=== PATIENT | female | born 1960 | race Caucasian/White ===

== ENCOUNTER 2018-10-19 00:14 | Inpatient (IN) | payer MEDICARE, MEDICAID ==
[~2018-10-19] VITALS: Ht 165.1 cm; Wt 100.0 kg
[2018-10-19 01:26] LABS: CLARITY,URINE CLEAR (Clear); GLUCOSE, URINE NEGATIVE (Neg); LEUKOCYTE ESTERASE ,URINE NEGATIVE (Neg); OCCULT BLOOD,URINE NEGATIVE (Neg)
[2018-10-19 01:28] LABS: UA COLLECTION TYPE CLN CATCH MIDSTREAM
[2018-10-19 01:29] LABS: BASOPHILS % (AUTO) 0.7 % (0-1); EOSINOPHILS # (AUTO) 0.1 X10'3 (0-0.9); EOSINOPHILS % (AUTO) 1.7 % (0-6); HEMOGLOBIN 13.1 g/dl (12.0-16.0); LYMPHOCYTES # (AUTO) 1.2 X10'3 (1.1-4.8); LYMPHOCYTES % (AUTO) 20.2 % (21-51); MEAN CORPUSCULAR HEMOGLOBIN 34.7 PG (27.0-31.0); MEAN CORPUSCULAR HGB CONC 34.5 g/dL (33.0-36.5); MEAN CORPUSCULAR VOLUME 100.6 FL (78-98); MEAN PLATELET VOLUME 10.1 FL (7.4-10.4); MONOCYTES # (AUTO) 0.9 X10'3 (0-0.9); MONOCYTES % (AUTO) 15.7 % (2-12); NEUTROPHILS # (AUTO) 3.5 X10'3 (1.8-7.7); NEUTROPHILS % (AUTO) 61.7 % (42-75); PLATELET COUNT 58 X10'3 (140-440); RED BLOOD COUNT 3.78 X10'6 (4.20-5.60); RED CELL DISTRIBUTION WIDTH 13.8 % (11.5-14.5); WHITE BLOOD COUNT 5.8 X10'3 (4.5-11.0)
[2018-10-19 01:33] LABS: COLOR,URINE ORANGE (Yellow)
[2018-10-19] MEDS ORDERED: iohexol 300mg/ml 100ml inj. ONE (01:40)
[2018-10-19 01:44] LABS: ALANINE AMINOTRANSFERASE 71 U/L (12-78); ALBUMIN 3.2 G/DL (3.4-5.0); ALKALINE PHOSPHATASE 153 IU/L (46-116); ANION GAP 12 (8-16); ASPARTATE AMINO TRANSFERASE 214 U/L (10-37); BILIRUBIN,TOTAL 7.5 MG/DL (0.1-1.0); BLOOD UREA NITROGEN 2 MG/DL (7-18); BUN/CREATININE RATIO 3.4 (6.6-38.0); CALCIUM 9.2 MG/DL (8.5-10.1); CHLORIDE 99 MMOL/L (99-107); CREATININE 0.58 MG/DL (0.40-0.90); ETHANOL 0.144 GM/DL (0.0-0.010); GLUCOSE 68 MG/DL (70-104); LIPASE 256 U/L (73-393); PARTIAL THROMBOPLASTIN TIME 34 SECONDS (22-32); SODIUM 138 MMOL/L (135-145); TOTAL CARBON DIOXIDE 27.1 MMOL/L (24-32); eGFR > 90 ML/MIN
[2018-10-19 01:46] LABS: BACTERIA,URINE FEW /HPF (Neg); RBC,URINE NONE SEEN /HPF (0-2)
[2018-10-19 01:46] LABS: ALBUMIN/GLOBULIN RATIO 0.8 (1.1-1.5); TOTAL PROTEIN 7.3 G/DL (6.4-8.2)
[2018-10-19 01:47] LABS: MUCUS STRANDS FEW /LPF (Neg); SQUAMOUS EPITHELIAL CELL,UR FEW /LPF (FEW)
[2018-10-19 01:48] LABS: FINE GRANULAR CAST 0-3 /LPF (NEGATIVE); YEAST FEW /HPF (NEGATIVE)
[2018-10-19] MEDS ORDERED: UMEC1DIS INH (01:48)
[2018-10-19] MEDS ORDERED: MORP30TA6 PO (01:48)
[2018-10-19] MEDS ORDERED: OXYC30TA88 PO (01:48)
[2018-10-19] MEDS ORDERED: [UNRECOGNIZED DRUG - CODE] PO (01:48)
[2018-10-19] MEDS ORDERED: ALBU18HF2 INH (01:48)
[2018-10-19] MEDS ORDERED: magnesium 4gm in 100ml NS 100 ML IV ONE (01:50)
[2018-10-19 01:57] LABS: NUCLEATED RED BLOOD CELLS 1 /100WBC (0-0); TOTAL CELLS COUNTED 100
[2018-10-19 01:59] LABS: PLATELET ESTIMATE DECREASED
[2018-10-19] MEDS ORDERED: CefTRIAXone/D5W-Rocephin 1gm 50 ML IV ONE (03:00)
[2018-10-19] MEDS ORDERED: lactulose 20gm/30ml cup PO ONE (03:25)
[2018-10-19] MEDS ORDERED: magnesium 4gm in 100ml NS 100 ML IV PRN (03:30)
[2018-10-19] MEDS ORDERED: mag hydrox/Alum hydrox/simeth 30ml oral suspension PO PRN (03:30)
[2018-10-19] MEDS ORDERED: potassium Cl 20 mEq SR tablet PO PRN ×2 (03:30)
[2018-10-19] MEDS ORDERED: acetaminophen 325mg tablet PO PRN (03:30)
[2018-10-19] MEDS ORDERED: ondansetron/PF 4mg/2ml inj IV PRN (03:30)
[2018-10-19] MEDS ORDERED: magnesium Cl slow-release 64mg tablet PO PRN (03:30)
[2018-10-19] MEDS ORDERED: magnesium 2GM in 50ml NS 50 ML IV PRN (03:30)
[2018-10-19] MEDS ORDERED: potassium CL 10mEq/100ml bag 100 ML IV PRN ×2 (03:30)
[2018-10-19] MEDS ORDERED: magnesium hydroxide 30ml (MOM) UD suspension PO PRN (03:30)
[2018-10-19 04:45] VITALS: BP 126/73
--- NOTE | 2018-10-19 06:34 | NUR ---
Problems reprioritized. Patient report given, questions answered & plan of care reviewed with RONIT Pena. Addendum: 10/19/18 at 0635 by Anne He RN Amended: Links added.
--- NOTE | 2018-10-19 06:35 | NUR ---
Patient in room [facility]. I have received report from RONIT Palmer and had the opportunity to ask questions and assume patient care.
[2018-10-19] MEDS: thiamine inj. 100 MG, folic acid inj. 2 MG in normal saline 100ml IV soln 100 ML IV SCH (07:42)
[2018-10-19] MEDS: morphine ER 30mg tablet PO SCH ×3 (07:42→20:05)
[2018-10-19] MEDS: lactulose 20gm/30ml cup PO SCH ×3 (07:43→20:07)
[2018-10-19] MEDS: MVI, adult No.4 with vit. K 10 ML in dextrose 5% water 500ml 500 ML IV SCH ×2 (07:50)
[2018-10-19 08:00] VITALS: BP 130/83
[2018-10-19] MEDS: PIMOZIDE PO SCH ×2 (08:00→20:00)
[2018-10-19] MEDS ORDERED: potassium bicarbonate/cit acid 25mEq tablet.effervescent PO ONE (08:00)
[2018-10-19] MEDS: K and/or MAG REPLACEMENT MC SCH (08:00)
[2018-10-19 08:27] LABS: MAGNESIUM 1.8 MG/DL (1.5-2.4)
[2018-10-19 08:29] LABS: POTASSIUM 3.5 MMOL/L (3.5-5.1)
[2018-10-19 12:00] VITALS: BP 146/72
[2018-10-19] MEDS: oxyCODONE IR 5mg (immed. release) tablet PO PRN ×2 (13:50→17:58)
[2018-10-19] MEDS: LORazepam 0.5 MG tablet PO PRN ×2 (17:58→23:31)
[2018-10-19] MEDS: CefTRIAXone/D5W-Rocephin 1gm 50 ML IV SCH (17:58)
--- NOTE | 2018-10-19 18:28 | NUR ---
Problems reprioritized. Patient report given, questions answered & plan of care reviewed with RONIT Yaets.
--- NOTE | 2018-10-19 18:38 | NUR ---
Patient in room [facility]. I have received report from Becky COTTRELL and had the opportunity to ask questions and assume patient care.
[2018-10-19 19:00] VITALS: BP 123/77
--- NOTE | 2018-10-19 20:00 | NUR ---
Patient refused shower and states she will take one in the morning. Addendum: 10/20/18 at 0543 by Trudy Sanchez RN Amended: Links added.
[2018-10-20] VITALS: BP 123/68
[2018-10-20] MEDS: oxyCODONE IR 5mg (immed. release) tablet PO PRN ×3 (01:04→23:00)
[2018-10-20 05:51] LABS: EOSINOPHILS # (AUTO) 0.2 X10'3 (0-0.9); EOSINOPHILS % (AUTO) 3.3 % (0-6); HEMATOCRIT 37.9 % (35.0-45.0); HEMOGLOBIN 13.1 g/dl (12.0-16.0); LYMPHOCYTES # (AUTO) 0.7 X10'3 (1.1-4.8); LYMPHOCYTES % (AUTO) 14.4 % (21-51); MEAN CORPUSCULAR HGB CONC 34.5 g/dL (33.0-36.5); MEAN CORPUSCULAR VOLUME 101.7 FL (78-98); MEAN PLATELET VOLUME 11.3 FL (7.4-10.4); MONOCYTES # (AUTO) 0.6 X10'3 (0-0.9); MONOCYTES % (AUTO) 12.5 % (2-12); NEUTROPHILS # (AUTO) 3.4 X10'3 (1.8-7.7); NEUTROPHILS % (AUTO) 68.8 % (42-75); PLATELET COUNT 54 X10'3 (140-440); RED BLOOD COUNT 3.72 X10'6 (4.20-5.60); RED CELL DISTRIBUTION WIDTH 13.8 % (11.5-14.5)
[2018-10-20 05:54] LABS: ALANINE AMINOTRANSFERASE 72 U/L (12-78); ALBUMIN 3.1 G/DL (3.4-5.0); ALKALINE PHOSPHATASE 159 IU/L (46-116); ANION GAP 8 (8-16); ASPARTATE AMINO TRANSFERASE 230 U/L (10-37); BILIRUBIN,TOTAL 10.7 MG/DL (0.1-1.0); BLOOD UREA NITROGEN 6 MG/DL (7-18); BUN/CREATININE RATIO 12.8 (6.6-38.0); CALCIUM 8.5 MG/DL (8.5-10.1); CHLORIDE 96 MMOL/L (99-107); CREATININE 0.47 MG/DL (0.40-0.90); GLUCOSE 93 MG/DL (70-104); MAGNESIUM 1.6 MG/DL (1.5-2.4); SODIUM 132 MMOL/L (135-145); TOTAL CARBON DIOXIDE 28.5 MMOL/L (24-32); eGFR > 90 ML/MIN
[2018-10-20 06:03] LABS: ALBUMIN/GLOBULIN RATIO 0.7 (1.1-1.5); PHOSPHORUS 2.9 MG/DL (2.3-4.5); POTASSIUM 3.7 MMOL/L (3.5-5.1); TOTAL PROTEIN 7.5 G/DL (6.4-8.2)
--- NOTE | 2018-10-20 06:30 | NUR ---
Problems reprioritized. Patient report given, questions answered & plan of care reviewed with Shital COTTRELL.
[2018-10-20 06:39] LABS: NUCLEATED RED BLOOD CELLS 1 /100WBC (0-0); PLATELET ESTIMATE DECREASED; TOTAL CELLS COUNTED 100
[2018-10-20 06:40] LABS: HYPOCHROMASIA 1+; POLYCHROMASIA 1+; STOMATOCYTES 1+
[2018-10-20 07:00] VITALS: BP 135/95
[2018-10-20] MEDS: PIMOZIDE PO SCH ×2 (07:30→20:00)
[2018-10-20] MEDS: K and/or MAG REPLACEMENT MC SCH (07:30)
[2018-10-20] MEDS: lactulose 20gm/30ml cup PO SCH ×4 (07:34→20:59)
[2018-10-20] MEDS: morphine ER 30mg tablet PO SCH ×3 (07:34→20:56)
[2018-10-20] MEDS: CefTRIAXone/D5W-Rocephin 1gm 50 ML IV SCH (07:34)
[2018-10-20] MEDS: MVI, adult No.4 with vit. K 10 ML in dextrose 5% water 500ml 500 ML IV SCH ×2 (09:11)
[2018-10-20] MEDS: thiamine inj. 100 MG, folic acid inj. 2 MG in normal saline 100ml IV soln 100 ML IV SCH (09:11)
[2018-10-20] MEDS ORDERED: pneumococcal 23-VAL P-sac vacc 25 mcg/0.5ml vial IMVAC ONE (10:00)
[2018-10-20] MEDS ORDERED: sincalide inj 2 MCG in normal saline 50ml IV soln 50 ML IV ONE (10:55)
[2018-10-20 13:38] VITALS: BP 127/87
--- NOTE | 2018-10-20 18:20 | NUR ---
Problems reprioritized. Patient report given, questions answered & plan of care reviewed with PRUDENCE RN.
--- NOTE | 2018-10-20 18:53 | NUR ---
Patient in room [facility]. I have received report from Shital COTTRELL and had the opportunity to ask questions and assume patient care.Patient is with visitor by her bedside and show no sign of distress.
[2018-10-20 19:00] VITALS: BP 110/81
[2018-10-20] MEDS: LORazepam 0.5 MG tablet PO PRN (20:56)
[2018-10-20] MEDS: lactobacillus rhamnosus 10,000 MMU CELLS/CAPSULE PO SCH (20:56)
[2018-10-20] MEDS ORDERED: nicotine 21mg patch - 24 hr TD ONE (22:45)
[2018-10-21] VITALS: BP 139/87
[2018-10-21] MEDS: LORazepam 0.5 MG tablet PO PRN ×2 (04:14→08:34)
[2018-10-21 06:07] LABS: BASOPHILS % (AUTO) 0.9 % (0-1); EOSINOPHILS # (AUTO) 0.1 X10'3 (0-0.9); EOSINOPHILS % (AUTO) 2.2 % (0-6); HEMATOCRIT 37.7 % (35.0-45.0); LYMPHOCYTES # (AUTO) 0.7 X10'3 (1.1-4.8); LYMPHOCYTES % (AUTO) 13.1 % (21-51); MEAN CORPUSCULAR HEMOGLOBIN 35.4 PG (27.0-31.0); MEAN CORPUSCULAR HGB CONC 34.4 g/dL (33.0-36.5); MEAN CORPUSCULAR VOLUME 102.9 FL (78-98); MEAN PLATELET VOLUME 11.2 FL (7.4-10.4); MONOCYTES # (AUTO) 0.7 X10'3 (0-0.9); MONOCYTES % (AUTO) 12.7 % (2-12); NEUTROPHILS # (AUTO) 3.7 X10'3 (1.8-7.7); NEUTROPHILS % (AUTO) 71.1 % (42-75); PLATELET COUNT 57 X10'3 (140-440); RED BLOOD COUNT 3.67 X10'6 (4.20-5.60); WHITE BLOOD COUNT 5.2 X10'3 (4.5-11.0)
--- NOTE | 2018-10-21 06:26 | NUR ---
Patient in room [facility]. I have received report from RONIT Yates and had the opportunity to ask questions and assume patient care.
[2018-10-21 06:27] LABS: ALANINE AMINOTRANSFERASE 65 U/L (12-78); ALBUMIN 2.8 G/DL (3.4-5.0); ALKALINE PHOSPHATASE 145 IU/L (46-116); ANION GAP 9 (8-16); ASPARTATE AMINO TRANSFERASE 205 U/L (10-37); BILIRUBIN,TOTAL 13.4 MG/DL (0.1-1.0); BLOOD UREA NITROGEN 6 MG/DL (7-18); BUN/CREATININE RATIO 14.6 (6.6-38.0); CALCIUM 8.6 MG/DL (8.5-10.1); CHLORIDE 100 MMOL/L (99-107); CREATININE 0.41 MG/DL (0.40-0.90); GLUCOSE 96 MG/DL (70-104); MAGNESIUM 1.9 MG/DL (1.5-2.4); SODIUM 136 MMOL/L (135-145); TOTAL CARBON DIOXIDE 26.7 MMOL/L (24-32); eGFR > 90 ML/MIN
--- NOTE | 2018-10-21 06:27 | NUR ---
Problems reprioritized. Patient report given, questions answered & plan of care reviewed with Romi COTTRELL.
[2018-10-21 06:38] LABS: PHOSPHORUS 3.3 MG/DL (2.3-4.5); POTASSIUM 3.3 MMOL/L (3.5-5.1)
[2018-10-21 06:41] LABS: ALBUMIN/GLOBULIN RATIO 0.7 (1.1-1.5); TOTAL PROTEIN 6.8 G/DL (6.4-8.2)
[2018-10-21 07:00] VITALS: BP 126/87
[2018-10-21] MEDS ORDERED: folic acid 1mg tablet PO SCH (08:00)
[2018-10-21] MEDS ORDERED: multivitamins, therapeutics tablet PO SCH (08:00)
[2018-10-21] MEDS: PIMOZIDE PO SCH (08:00)
[2018-10-21] MEDS ORDERED: thiamine 100mg tablet PO SCH (08:00)
[2018-10-21] MEDS: K and/or MAG REPLACEMENT MC SCH (08:00)
[2018-10-21] MEDS: lactulose 20gm/30ml cup PO SCH (08:00)
[2018-10-21] MEDS: lactobacillus rhamnosus 10,000 MMU CELLS/CAPSULE PO SCH (08:31)
[2018-10-21] MEDS: morphine ER 30mg tablet PO SCH (08:31)
[2018-10-21] MEDS ORDERED: MULT-1179 PO (09:10)
[2018-10-21] MEDS ORDERED: MORP30TA6 PO (09:10)
[2018-10-21] MEDS ORDERED: PANT40TA4 PO (09:10)
[2018-10-21] MEDS ORDERED: FOLI1TAB16 PO (09:10)
[2018-10-21] MEDS ORDERED: LACT10SO32 PO (09:10)
[2018-10-21] MEDS ORDERED: thiamine tablet PO (09:10)
[2018-10-21] MEDS ORDERED: OXYC30TA88 PO (09:10)
--- NOTE | 2018-10-21 10:30 | NUR ---
Patient discharged home via family and taken from unit via wheelchair with x1 staff. Patient alert, oriented and in no apparent distress at time of discharge. Patient PIV removed with cannula intact. Potassium was 3.3 today and a 20 mEq tablet was given to patient, MD aware of low potassium. Discharge instructions were given and discussed with patient. Patient was given time for question and answers and stated an understanding of the instructions. New medications called into patient pharmacy.
== END 2018-10-21 10:30 | disposition home or self-care (01) | DRG 432 ==
LOC: ER 00:15 → SUR 3N 04:24 → CMPBEDREQ 05:02 → SUR 3N 21:50
PROVIDERS: ADMIT Hospitalist; ATTEND Internal Medicine
PROC: BW211ZZ Computerized Tomography (CT Scan) of Abdomen and Pelvis using Low Osmolar Contrast (ICD-10-PCS; 2018-10-19)
PROC: CF141ZZ Planar Nuclear Medicine Imaging of Gallbladder using Technetium 99m (Tc-99m) (ICD-10-PCS; principal; 2018-10-20)
DX: K70.10 Alcoholic hepatitis without ascites (principal); K72.00 Acute and subacute hepatic failure without coma; E87.1 Hypo-osmolality and hyponatremia; N30.00 Acute cystitis without hematuria; D68.9 Coagulation defect, unspecified; K70.30 Alcoholic cirrhosis of liver without ascites; F10.229 Alcohol dependence with intoxication, unspecified; E87.6 Hypokalemia; E83.42 Hypomagnesemia; D69.6 Thrombocytopenia, unspecified; G89.4 Chronic pain syndrome; J44.9 Chronic obstructive pulmonary disease, unspecified; K43.9 Ventral hernia without obstruction or gangrene; K76.0 Fatty (change of) liver, not elsewhere classified; B19.20 Unspecified viral hepatitis C without hepatic coma; Z98.891 History of uterine scar from previous surgery; Z79.899 Other long term (current) drug therapy
CPT/HCPCS: 36415; 71045; 74177; 78226; 80053; 80320; 81001; 82140; 82948; 83690; 83735; 84100; 84132; 85025; 85610; 85730; 86803; 87081; 87088; 90732; 93005; 97116; 97161; 97530; 99285; A9537; G0378; J0696; J2805; J3411; J3475; J3490; J7060; Q9967

== ENCOUNTER 2018-11-25 19:20 | Inpatient (IN) | payer MEDICARE, MEDICAID ==
[~2018-11-25] VITALS: Ht 165.1 cm; Wt 102.3 kg
[~2018-11-25 19:20] MED LIST: FOLI1TAB16 PO; LACT10SO32 PO; MORP30TA6 PO; MULT-1179 PO; OXYC30TA88 PO; PANT40TA4 PO; [UNRECOGNIZED DRUG - CODE] PO; thiamine tablet PO
[2018-11-25 20:34] LABS: BASOPHILS # (AUTO) 0.1 X10'3 (0-0.2); BASOPHILS % (AUTO) 0.9 % (0-1); EOSINOPHILS # (AUTO) 0.1 X10'3 (0-0.9); EOSINOPHILS % (AUTO) 0.4 % (0-6); HEMATOCRIT 42.8 % (35.0-45.0); HEMOGLOBIN 14.7 g/dl (12.0-16.0); LYMPHOCYTES # (AUTO) 2.8 X10'3 (1.1-4.8); LYMPHOCYTES % (AUTO) 18.9 % (21-51); MEAN CORPUSCULAR HEMOGLOBIN 34.9 PG (27.0-31.0); MEAN CORPUSCULAR HGB CONC 34.3 g/dL (33.0-36.5); MEAN CORPUSCULAR VOLUME 101.8 FL (78-98); MEAN PLATELET VOLUME 9.2 FL (7.4-10.4); MONOCYTES # (AUTO) 1.7 X10'3 (0-0.9); MONOCYTES % (AUTO) 11.6 % (2-12); NEUTROPHILS # (AUTO) 9.9 X10'3 (1.8-7.7); NEUTROPHILS % (AUTO) 68.2 % (42-75); PLATELET COUNT 146 X10'3 (140-440); RED CELL DISTRIBUTION WIDTH 14.9 % (11.5-14.5); WHITE BLOOD COUNT 14.6 X10'3 (4.5-11.0)
[2018-11-25 21:22] LABS: ALANINE AMINOTRANSFERASE 49 U/L (12-78); ALBUMIN 2.4 G/DL (3.4-5.0); ALKALINE PHOSPHATASE 174 IU/L (46-116); BILIRUBIN,TOTAL 7.7 MG/DL (0.1-1.0); BLOOD UREA NITROGEN 9 MG/DL (7-18); BUN/CREATININE RATIO 8.3 (6.6-38.0); CALCIUM 9.4 MG/DL (8.5-10.1); CREATININE 1.09 MG/DL (0.40-0.90); GLUCOSE 88 MG/DL (70-104); TOTAL CARBON DIOXIDE 23.7 MMOL/L (24-32); eGFR 52 ML/MIN
[2018-11-25] MEDS ORDERED: furosemide 10 MG/1 ML 10ml inj IV ONE (21:35)
[2018-11-25 21:40] LABS: ALBUMIN/GLOBULIN RATIO 0.4 (1.1-1.5); ANION GAP 18 (8-16); CHLORIDE 91 MMOL/L (99-107); SODIUM 133 MMOL/L (135-145); TOTAL PROTEIN 8.3 G/DL (6.4-8.2)
[2018-11-25 21:46] LABS: POTASSIUM 6.3 MMOL/L (3.5-5.1)
[2018-11-25 21:47] LABS: ASPARTATE AMINO TRANSFERASE 95 U/L (10-37)
[2018-11-25] MEDS ORDERED: dextrose 50%-water 50ml dispensing syringe IV ONE (21:50)
[2018-11-25] MEDS ORDERED: sodium polystyrene sulfonate 15gm/60ml oral suspension PO ONE (21:50)
[2018-11-25] MEDS ORDERED: calcium chloride 100 MG/1 ML inj IV ONE (21:50)
[2018-11-25] MEDS ORDERED: insulin regular, human 10 units/0.1 ml syringe IV ONE (21:50)
[2018-11-25] MEDS ORDERED: SULF1TAB49 PO (22:01)
[2018-11-25 22:03] LABS: CLARITY,URINE CLEAR (Clear); COLOR,URINE YELLOW (Yellow); GLUCOSE, URINE NEGATIVE (Neg); KETONES,URINE NEGATIVE (Neg); LEUKOCYTE ESTERASE ,URINE NEGATIVE (Neg); NITRITES, URINE NEGATIVE (Neg); OCCULT BLOOD,URINE NEGATIVE (Neg); PROTEIN,URINE NEGATIVE (Neg); UROBILINOGEN,URINE 0.2 E.U/dL (0.2-1.0)
[2018-11-25] MEDS ORDERED: MILK175T PO (22:03)
[2018-11-25 22:05] LABS: UA COLLECTION TYPE VOIDED
[2018-11-25] MEDS ORDERED: PROP10TA10 PO (22:06)
[2018-11-25] MEDS ORDERED: FURO-149 PO (22:07)
[2018-11-25] MEDS ORDERED: SPIR50TA5 PO (22:09)
[2018-11-25] MEDS ORDERED: POTA10TA15 PO (22:30)
[2018-11-25] MEDS ORDERED: LACT10SO57 PO (22:34)
[2018-11-25] MEDS ORDERED: UMEC1DIS INH (22:40)
[2018-11-25] MEDS ORDERED: ALBU18HF2 INH (22:42)
[2018-11-25] MEDS ORDERED: NALO4SPR INH (22:50)
[2018-11-25] MEDS ORDERED: DICL100G15 TOP (22:53)
[2018-11-25] MEDS ORDERED: ondansetron/PF 4mg/2ml inj IV PRN (23:05)
[2018-11-25] MEDS ORDERED: acetaminophen 325mg tablet PO PRN (23:05)
[2018-11-25] MEDS ORDERED: mag hydrox/Alum hydrox/simeth 30ml oral suspension PO PRN (23:05)
[2018-11-25] MEDS ORDERED: magnesium hydroxide 30ml (MOM) UD suspension PO PRN (23:05)
--- NOTE | 2018-11-26 00:30 | NUR ---
Pt arrived to floor via gurney. Walked to bedside with 2P SBA. FWW is with pt. No complaints. 2 RN skin check performed, VSS. Provided with some snacks, DARTed and MRSA swab obtained. Seizure pads and fall risk band placed on pt/pt bed. Advised patient to call when she needs to use restroom to prevent falls. Call light clipped to gown.
[2018-11-26 00:43] VITALS: BP 123/69
--- NOTE | 2018-11-26 02:27 | NUR ---
Patient states she has bugs "Mosquitos" that come out of her skin. She finds the mosquitos in her linen and around the home, she reports to having seen the mosquitos crawl out from her skin. She places them in jars so they can be taken to her MD. States this has been going on for about 5 years and she has yet to find an MD that will take her seriously. Patient also states she believes she has a parasite. States she has "orange wormy looking things" in her stool. Also reports to have taken capsules before; when she had emesis, there were "orange things in it". Thorough skin check preformed with another RN. No bugs found. Patient has some very small scabs scattered across her back. They are not clustered together as with scabies. medical policy specialist consulted; no need to isolate at this time. Will continue to monitor patient condition.
[2018-11-26 06:00] VITALS: BP 93/60
--- NOTE | 2018-11-26 06:24 | NUR ---
Problems reprioritized. Patient report given, questions answered & plan of care reviewed with RONIT King.
--- NOTE | 2018-11-26 06:32 | NUR ---
Report received from RONIT Ortiz.
[2018-11-26] MEDS: morphine ER 30mg tablet PO SCH ×2 (07:34→19:47)
[2018-11-26] MEDS: folic acid 1mg tablet PO SCH (07:34)
[2018-11-26] MEDS: pantoprazole 40mg Tablet.DR PO SCH (07:34)
[2018-11-26] MEDS: lactulose 20gm/30ml cup PO SCH ×3 (07:34→21:00)
[2018-11-26] MEDS: multivitamins, therapeutics tablet PO SCH (07:35)
[2018-11-26] MEDS: thiamine 100mg tablet PO SCH (07:35)
[2018-11-26] MEDS: furosemide 40mg tablet PO SCH (07:51)
[2018-11-26] MEDS: propranolol 10mg tablet PO SCH ×2 (07:51→19:47)
[2018-11-26] MEDS: albuterol 2.5 MG/3 ML nebule NEB SCH ×3 (08:40→20:49)
[2018-11-26] MEDS ORDERED: haloperidol 5mg tablet PO PRN (08:45)
[2018-11-26] MEDS ORDERED: thiamine inj. 100 MG in normal saline 100ml IV soln 100 ML IV ONE (08:45)
[2018-11-26] MEDS ORDERED: LORazepam 1 MG tablet PO PRN (08:45)
[2018-11-26] MEDS ORDERED: haloperidol lactate 5mg/ml inj IM PRN (08:45)
[2018-11-26] MEDS ORDERED: LORazepam 2 mg/ml vial IV PRN (08:45)
[2018-11-26] MEDS: Umeclidinium Brm/Vilanterol Tr (Anoro Ellipta 62.5-25 Mcg INH) IH SCH (09:14)
[2018-11-26 09:15] LABS: BASOPHILS # (AUTO) 0.1 X10'3 (0-0.2); EOSINOPHILS # (AUTO) 0.2 X10'3 (0-0.9); HEMOGLOBIN 12.3 g/dl (12.0-16.0); LYMPHOCYTES % (AUTO) 25.3 % (21-51); MEAN PLATELET VOLUME 9.8 FL (7.4-10.4)
[2018-11-26 09:18] LABS: BASOPHILS % (AUTO) 0.8 % (0-1); EOSINOPHILS % (AUTO) 1.4 % (0-6); HEMATOCRIT 35.6 % (35.0-45.0); LYMPHOCYTES # (AUTO) 3.6 X10'3 (1.1-4.8); MEAN CORPUSCULAR HEMOGLOBIN 34.6 PG (27.0-31.0); MEAN CORPUSCULAR HGB CONC 34.5 g/dL (33.0-36.5); MEAN CORPUSCULAR VOLUME 100.3 FL (78-98); MONOCYTES # (AUTO) 2.2 X10'3 (0-0.9); MONOCYTES % (AUTO) 15.1 % (2-12); NEUTROPHILS # (AUTO) 8.3 X10'3 (1.8-7.7); NEUTROPHILS % (AUTO) 57.4 % (42-75); PLATELET COUNT 131 X10'3 (140-440); RED BLOOD COUNT 3.55 X10'6 (4.20-5.60); RED CELL DISTRIBUTION WIDTH 14.9 % (11.5-14.5); WHITE BLOOD COUNT 14.4 X10'3 (4.5-11.0)
[2018-11-26 09:26] LABS: ALANINE AMINOTRANSFERASE 35 U/L (12-78); ALBUMIN 1.7 G/DL (3.4-5.0); ALKALINE PHOSPHATASE 130 IU/L (46-116); ANION GAP 5 (8-16); ASPARTATE AMINO TRANSFERASE 64 U/L (10-37); BLOOD UREA NITROGEN 9 MG/DL (7-18); BUN/CREATININE RATIO 9.8 (6.6-38.0); CALCIUM 9.2 MG/DL (8.5-10.1); CHLORIDE 100 MMOL/L (99-107); CREATININE 0.92 MG/DL (0.40-0.90); GLUCOSE 102 MG/DL (70-104); SODIUM 134 MMOL/L (135-145); TOTAL CARBON DIOXIDE 28.6 MMOL/L (24-32); eGFR 63 ML/MIN
[2018-11-26 09:30] LABS: ALBUMIN/GLOBULIN RATIO 0.4 (1.1-1.5); POTASSIUM 4.4 MMOL/L (3.5-5.1); TOTAL PROTEIN 6.4 G/DL (6.4-8.2)
[2018-11-26 10:15] VITALS: BP 144/87
[2018-11-26 10:21] LABS: BILIRUBIN,TOTAL 5.5 MG/DL (0.1-1.0)
[2018-11-26 11:00] LABS: TOTAL CELLS COUNTED 100
[2018-11-26 11:01] LABS: PLATELET ESTIMATE DECREASED; POLYCHROMASIA FEW
--- NOTE | 2018-11-26 13:09 | NUR ---
CALLED PT DOCTOR PER PTS REQUEST TO LET THEM KNOW SHES IN THE HOSPITAL AND WON'T BE ABLE TO MAKE IT TO HER APPOINTMENT. NO VOICEMAIL AVAILABLE PT WILL FOLLOW UP.
[2018-11-26 17:00] VITALS: BP 101/54
--- NOTE | 2018-11-26 18:15 | NUR ---
report given to RONIT Lovelace. Pt stable.
--- NOTE | 2018-11-26 18:15 | NUR ---
Received report from Jennifer, student nurse with RONIT King. Patient is awake and alert on room air, in no apparent distress. Call light and items of frequent use within reach. Will continue to monitor.
[2018-11-26 22:00] VITALS: BP 95/61
--- NOTE | 2018-11-27 06:07 | NUR ---
Problems reprioritized. Patient report given, questions answered & plan of care reviewed with RONIT King.
[2018-11-27 06:30] VITALS: BP 97/61
[2018-11-27 06:51] LABS: BASOPHILS # (AUTO) 0.2 X10'3 (0-0.2); BASOPHILS % (AUTO) 1.3 % (0-1); EOSINOPHILS # (AUTO) 0.4 X10'3 (0-0.9); EOSINOPHILS % (AUTO) 3.1 % (0-6); HEMATOCRIT 35.1 % (35.0-45.0); HEMOGLOBIN 12.1 g/dl (12.0-16.0); LYMPHOCYTES # (AUTO) 2.7 X10'3 (1.1-4.8); LYMPHOCYTES % (AUTO) 23.5 % (21-51); MEAN CORPUSCULAR HGB CONC 34.6 g/dL (33.0-36.5); MEAN CORPUSCULAR VOLUME 101.3 FL (78-98); MEAN PLATELET VOLUME 9.3 FL (7.4-10.4); MONOCYTES # (AUTO) 1.6 X10'3 (0-0.9); MONOCYTES % (AUTO) 13.8 % (2-12); NEUTROPHILS # (AUTO) 6.6 X10'3 (1.8-7.7); NEUTROPHILS % (AUTO) 58.3 % (42-75); PLATELET COUNT 153 X10'3 (140-440); RED BLOOD COUNT 3.46 X10'6 (4.20-5.60); RED CELL DISTRIBUTION WIDTH 14.8 % (11.5-14.5); WHITE BLOOD COUNT 11.4 X10'3 (4.5-11.0)
[2018-11-27 07:11] LABS: ALANINE AMINOTRANSFERASE 33 U/L (12-78); ALBUMIN 1.8 G/DL (3.4-5.0); ALKALINE PHOSPHATASE 138 IU/L (46-116); ANION GAP 6 (8-16); ASPARTATE AMINO TRANSFERASE 60 U/L (10-37); BILIRUBIN,TOTAL 5.2 MG/DL (0.1-1.0); BLOOD UREA NITROGEN 8 MG/DL (7-18); BUN/CREATININE RATIO 9.5 (6.6-38.0); CALCIUM 8.7 MG/DL (8.5-10.1); CHLORIDE 98 MMOL/L (99-107); CREATININE 0.84 MG/DL (0.40-0.90); GLUCOSE 124 MG/DL (70-104); LIPASE 129 U/L (73-393); MAGNESIUM 1.7 MG/DL (1.5-2.4); SODIUM 131 MMOL/L (135-145); TOTAL CARBON DIOXIDE 26.7 MMOL/L (24-32); eGFR 70 ML/MIN
[2018-11-27] MEDS: propranolol 10mg tablet PO SCH (07:11)
[2018-11-27] MEDS: morphine ER 30mg tablet PO SCH (07:11)
[2018-11-27] MEDS: pantoprazole 40mg Tablet.DR PO SCH (07:11)
[2018-11-27] MEDS: thiamine 100mg tablet PO SCH (07:11)
[2018-11-27] MEDS: lactulose 20gm/30ml cup PO SCH ×2 (07:11→13:00)
[2018-11-27] MEDS: multivitamins, therapeutics tablet PO SCH (07:11)
[2018-11-27] MEDS: folic acid 1mg tablet PO SCH (07:11)
[2018-11-27] MEDS: Umeclidinium Brm/Vilanterol Tr (Anoro Ellipta 62.5-25 Mcg INH) IH SCH (07:12)
[2018-11-27 07:17] LABS: PHOSPHORUS 3.8 MG/DL (2.3-4.5); POTASSIUM 3.9 MMOL/L (3.5-5.1); TOTAL PROTEIN 6.8 G/DL (6.4-8.2)
[2018-11-27 07:22] LABS: ALBUMIN/GLOBULIN RATIO 0.4 (1.1-1.5)
[2018-11-27] MEDS ORDERED: folic acid inj. 2 MG, thiamine inj. 100 MG, MVI, adult No.4 with vit. K 10 ML in dextro... IV SCH ×4 (08:00)
[2018-11-27] MEDS: furosemide 40mg tablet PO SCH (08:00)
[2018-11-27] MEDS: albuterol 2.5 MG/3 ML nebule NEB SCH (09:34)
[2018-11-27 10:30] VITALS: BP 108/60
== END 2018-11-27 14:30 | disposition home or self-care (01) | DRG 433 ==
LOC: ER 19:20 → ED HOLD 23:07 → ORTHO 4S 11-26 00:10
PROVIDERS: ADMIT Internal Medicine; ATTEND Family Medicine
DX: K70.31 Alcoholic cirrhosis of liver with ascites (principal); E87.1 Hypo-osmolality and hyponatremia; E87.5 Hyperkalemia; K43.9 Ventral hernia without obstruction or gangrene; K72.10 Chronic hepatic failure without coma; D70.9 Neutropenia, unspecified; G89.29 Other chronic pain; B19.20 Unspecified viral hepatitis C without hepatic coma; F10.20 Alcohol dependence, uncomplicated; T50.0X5A Adverse effect of mineralocorticoids and their antagonists, initial encounter; J44.9 Chronic obstructive pulmonary disease, unspecified; F17.200 Nicotine dependence, unspecified, uncomplicated; Z98.891 History of uterine scar from previous surgery; Z79.899 Other long term (current) drug therapy; Y92.89 Other specified places as the place of occurrence of the external cause
CPT/HCPCS: 36415; 71045; 76705; 80053; 81003; 83690; 83735; 83880; 84100; 84484; 85025; 85610; 87081; 93005; 94640; 94760; 96374; 96375; 99285; G0378; J1815; J1940

== ENCOUNTER 2018-12-26 10:54 | Inpatient (IN) | payer MEDICARE, MEDICAID ==
[~2018-12-26] VITALS: Ht 165.1 cm; Wt 87.0 kg
[~2018-12-26 10:54] MED LIST changes: +ALBU18HF2 INH; +FURO-149 PO; -LACT10SO32 PO; +LACT10SO57 PO; +MILK175T PO; +NALO4SPR INH; +PROP10TA10 PO; +SULF1TAB49 PO; +UMEC1DIS INH; -[UNRECOGNIZED DRUG - CODE] PO
[2018-12-26 12:56] LABS: BASOPHILS # (AUTO) 0.1 X10'3 (0-0.2); EOSINOPHILS # (AUTO) 0.2 X10'3 (0-0.9); EOSINOPHILS % (AUTO) 2.5 % (0-6); HEMATOCRIT 35.4 % (35.0-45.0); HEMOGLOBIN 12.1 g/dl (12.0-16.0); LYMPHOCYTES # (AUTO) 2.5 X10'3 (1.1-4.8); LYMPHOCYTES % (AUTO) 30.7 % (21-51); MEAN CORPUSCULAR HEMOGLOBIN 34.3 PG (27.0-31.0); MEAN CORPUSCULAR HGB CONC 34.2 g/dL (33.0-36.5); MEAN CORPUSCULAR VOLUME 100.2 FL (78-98); MEAN PLATELET VOLUME 8.4 FL (7.4-10.4); MONOCYTES # (AUTO) 1.2 X10'3 (0-0.9); MONOCYTES % (AUTO) 15.3 % (2-12); NEUTROPHILS % (AUTO) 50.5 % (42-75); PLATELET COUNT 165 X10'3 (140-440); RED BLOOD COUNT 3.53 X10'6 (4.20-5.60); RED CELL DISTRIBUTION WIDTH 14.8 % (11.5-14.5)
[2018-12-26 13:11] LABS: ALANINE AMINOTRANSFERASE 18 U/L (12-78); ALBUMIN 1.8 G/DL (3.4-5.0); ALBUMIN/GLOBULIN RATIO 0.4 (1.1-1.5); ALKALINE PHOSPHATASE 124 IU/L (46-116); AMYLASE 15 U/L (25-115); ANION GAP 1 (8-16); ASPARTATE AMINO TRANSFERASE 43 U/L (10-37); BILIRUBIN,TOTAL 2.3 MG/DL (0.1-1.0); BLOOD UREA NITROGEN 5 MG/DL (7-18); BUN/CREATININE RATIO 6.8 (6.6-38.0); CALCIUM 8.3 MG/DL (8.5-10.1); CHLORIDE 102 MMOL/L (99-107); CREATININE 0.74 MG/DL (0.40-0.90); GLUCOSE 115 MG/DL (70-104); LIPASE 79 U/L (73-393); POTASSIUM 3.3 MMOL/L (3.5-5.1); SODIUM 136 MMOL/L (135-145); TOTAL CARBON DIOXIDE 32.8 MMOL/L (24-32); TOTAL PROTEIN 6.8 G/DL (6.4-8.2); eGFR 81 ML/MIN
[2018-12-26] MEDS ORDERED: furosemide 10 MG/1 ML 10ml inj IV ONE (13:30)
[2018-12-26] MEDS ORDERED: ampicillin/sulbac 3gm/NS 100ml 100 ML IV SCH (13:35)
--- NOTE | 2018-12-26 13:48 | NUR ---
Spoke with Dr Haque regarding blood cultures order, per MD no blood cultures needed at this time. RONIT Anderson made aware.
[2018-12-26] MEDS ORDERED: doxycycline inj 100 MG in normal saline 100ml IV soln 100 ML IV SCH (14:00)
[2018-12-26] MEDS ORDERED: bisacodyl 10mg suppository rectal RC PRN (14:05)
[2018-12-26] MEDS ORDERED: magnesium hydroxide 30ml (MOM) UD suspension PO PRN (14:05)
[2018-12-26] MEDS ORDERED: metoclopramide 5 mg/ml inj IV PRN (14:05)
[2018-12-26] MEDS ORDERED: diphenhydrAMINE 25mg capsule PO PRN (14:05)
[2018-12-26] MEDS ORDERED: ondansetron/PF 4mg/2ml inj IV PRN (14:05)
[2018-12-26] MEDS ORDERED: diphenhydrAMINE 50 mg/ml inj IV PRN (14:05)
[2018-12-26] MEDS ORDERED: magnesium 4gm in 100ml NS 100 ML IV PRN (14:05)
[2018-12-26] MEDS ORDERED: magnesium Cl slow-release 64mg tablet PO PRN (14:05)
[2018-12-26] MEDS ORDERED: potassium CL 10mEq/100ml bag 100 ML IV PRN ×2 (14:05)
[2018-12-26] MEDS ORDERED: HYDROcodone/acetaminophen 5mg/325mg tablet PO PRN (14:05)
[2018-12-26] MEDS ORDERED: acetaminophen 325mg tablet PO PRN ×2 (14:05)
[2018-12-26] MEDS ORDERED: magnesium 2GM in 50ml NS 50 ML IV PRN (14:05)
[2018-12-26] MEDS ORDERED: mag hydrox/Alum hydrox/simeth 30ml oral suspension PO PRN (14:05)
[2018-12-26] MEDS ORDERED: ampicillin/sulbac 3gm/NS 100ml 100 ML IV ONE (14:10)
[2018-12-26 14:22] LABS: CLARITY,URINE CLEAR (Clear); COLOR,URINE YELLOW (Yellow); GLUCOSE, URINE NEGATIVE (Neg); KETONES,URINE NEGATIVE (Neg); LEUKOCYTE ESTERASE ,URINE NEGATIVE (Neg); NITRITES, URINE NEGATIVE (Neg); OCCULT BLOOD,URINE NEGATIVE (Neg); PROTEIN,URINE NEGATIVE (Neg)
[2018-12-26 14:24] LABS: UA COLLECTION TYPE FOLEY CATH
[2018-12-26] MEDS ORDERED: THIA100T70 PO (14:31)
[2018-12-26] MEDS ORDERED: LACT10SO67 PO (14:42)
[2018-12-26] MEDS ORDERED: OXYC30TA88 PO (14:44)
[2018-12-26] MEDS ORDERED: MULT-933 PO (14:44)
[2018-12-26] MEDS ORDERED: MORP30TA6 PO (14:44)
[2018-12-26] MEDS: CefTRIAXone/D5W-Rocephin 1gm 50 ML IV SCH (14:46)
[2018-12-26 15:31] LABS: PHOSPHORUS 3.5 MG/DL (2.3-4.5)
--- NOTE | 2018-12-26 16:30 | NUR ---
Received patient report from ER nurse Herlinda COTTRELL. Awaiting arrival to room 340B.
[2018-12-26 16:54] VITALS: BP 114/69
[2018-12-26] MEDS: potassium Cl 20 mEq SR tablet PO PRN ×2 (17:51→21:13)
--- NOTE | 2018-12-26 18:23 | NUR ---
Problems reprioritized. Patient report given, questions answered & plan of care reviewed with Denise COTTRELL.
--- NOTE | 2018-12-26 18:50 | NUR ---
Patient in room [facility]. I have received report from Nimco COTTRELL and had the opportunity to ask questions and assume patient care. Pt sitting up in bed visiting with her son. No signs of distress, will continue to monitor.
[2018-12-26] MEDS ORDERED: morphine ER 30mg tablet PO PRN (19:30)
[2018-12-26 20:00] VITALS: BP 108/63
[2018-12-26] MEDS: nicotine 14mg patch - 24hr TD SCH (20:00)
[2018-12-26] MEDS: HYDROcodone/acetaminophen 10/325mg tab PO PRN (20:07)
[2018-12-26] MEDS: lactulose 20gm/30ml cup PO SCH (21:00)
[2018-12-26] MEDS ORDERED: temazepam 15mg capsule PO PRN (21:00)
[2018-12-26] MEDS ORDERED: albuterol 2.5 MG/3 ML nebule NEB PRN (21:00)
[2018-12-26] MEDS: furosemide 40mg/4ml inj IV SCH (21:14)
[2018-12-26] MEDS: propranolol 10mg tablet PO SCH (21:14)
[2018-12-27 00:24] VITALS: BP 95/51
[2018-12-27 05:04] LABS: PARTIAL THROMBOPLASTIN TIME 36 SECONDS (22-32)
[2018-12-27 05:06] LABS: BASOPHILS # (AUTO) 0.1 X10'3 (0-0.2); EOSINOPHILS # (AUTO) 0.2 X10'3 (0-0.9); EOSINOPHILS % (AUTO) 2.7 % (0-6); HEMATOCRIT 34.1 % (35.0-45.0); HEMOGLOBIN 11.8 g/dl (12.0-16.0); LYMPHOCYTES # (AUTO) 2.8 X10'3 (1.1-4.8); LYMPHOCYTES % (AUTO) 37.5 % (21-51); MEAN CORPUSCULAR HEMOGLOBIN 34.6 PG (27.0-31.0); MEAN CORPUSCULAR HGB CONC 34.5 g/dL (33.0-36.5); MEAN CORPUSCULAR VOLUME 100.3 FL (78-98); MEAN PLATELET VOLUME 8.9 FL (7.4-10.4); MONOCYTES # (AUTO) 1.1 X10'3 (0-0.9); MONOCYTES % (AUTO) 14.5 % (2-12); NEUTROPHILS # (AUTO) 3.3 X10'3 (1.8-7.7); NEUTROPHILS % (AUTO) 44.3 % (42-75); PLATELET COUNT 154 X10'3 (140-440); RED CELL DISTRIBUTION WIDTH 14.6 % (11.5-14.5); WHITE BLOOD COUNT 7.4 X10'3 (4.5-11.0)
[2018-12-27 05:10] LABS: ALANINE AMINOTRANSFERASE 17 U/L (12-78); ALBUMIN 1.6 G/DL (3.4-5.0); ALBUMIN/GLOBULIN RATIO 0.3 (1.1-1.5); ALKALINE PHOSPHATASE 110 IU/L (46-116); ANION GAP 3 (8-16); ASPARTATE AMINO TRANSFERASE 35 U/L (10-37); BILIRUBIN,TOTAL 2.2 MG/DL (0.1-1.0); BLOOD UREA NITROGEN 5 MG/DL (7-18); BUN/CREATININE RATIO 7.1 (6.6-38.0); CALCIUM 8.2 MG/DL (8.5-10.1); CHLORIDE 105 MMOL/L (99-107); CHOL/HDL RATIO 3.9 (0.00-4.99); CHOLESTEROL 66 MG/DL (0-200); GLUCOSE 93 MG/DL (70-104); HDL CHOLESTEROL 17 MG/DL (35-60); LDL CHOLESTEROL 52 MG/DL (50-100); MAGNESIUM 1.7 MG/DL (1.5-2.4); PHOSPHORUS 4.1 MG/DL (2.3-4.5); SODIUM 139 MMOL/L (135-145); TOTAL CARBON DIOXIDE 31.4 MMOL/L (24-32); TOTAL PROTEIN 6.2 G/DL (6.4-8.2); TRIGLYCERIDES 40 MG/DL (20-135); eGFR 86 ML/MIN
[2018-12-27 05:13] LABS: POTASSIUM 2.9 MMOL/L (3.5-5.1)
[2018-12-27 06:30] VITALS: BP 104/69
--- NOTE | 2018-12-27 06:34 | NUR ---
Problems reprioritized. Patient report given, questions answered & plan of care reviewed with Ilene COTTRELL.
[2018-12-27 07:00] VITALS: BP 90/52
--- NOTE | 2018-12-27 07:03 | NUR ---
Patient in room [facility]. I have received report from JUSTYN COTTRELL and had the opportunity to ask questions and assume patient care.
[2018-12-27] MEDS: K and/or MAG REPLACEMENT MC SCH (08:00)
[2018-12-27] MEDS: nicotine 14mg patch - 24hr TD SCH (08:00)
[2018-12-27] MEDS: non-formulary drug (Umeclidinium Brm/Vilanterol Tr (Anoro Ellipta 62.5-25 Mcg INH) 1 PUFF) PO SCH (08:00)
[2018-12-27] MEDS: furosemide 40mg/4ml inj IV SCH ×3 (08:26→20:47)
[2018-12-27] MEDS: potassium Cl 20 mEq SR tablet PO PRN ×3 (08:40→17:36)
[2018-12-27] MEDS: multivitamins, therapeutics tablet PO SCH (08:42)
[2018-12-27] MEDS: thiamine 100mg tablet PO SCH (08:42)
[2018-12-27] MEDS: lactulose 20gm/30ml cup PO SCH ×3 (08:43→20:53)
[2018-12-27] MEDS: propranolol 10mg tablet PO SCH ×2 (08:43→20:47)
[2018-12-27] MEDS: CefTRIAXone/D5W-Rocephin 1gm 50 ML IV SCH (08:44)
[2018-12-27 11:45] VITALS: BP 96/66
[2018-12-27] MEDS: oxyCODONE IR 5mg (immed. release) tablet PO PRN (12:25)
[2018-12-27 12:46] VITALS: BP 104/62
[2018-12-27] MEDS: albumin (human) 25% 100 ML IV solution IV SCH (14:08)
--- NOTE | 2018-12-27 17:12 | NUR ---
Student documentation: I have reviewed assessments documented by Genevieve student nurse.
[2018-12-27] MEDS: potassium Cl 20 mEq SR tablet PO SCH (17:30)
--- NOTE | 2018-12-27 17:37 | NUR ---
pateint vioded 300 ml, post void bladder scan 327 mL observed, patient assisted to commode and will monitor.
--- NOTE | 2018-12-27 18:46 | NUR ---
Problems reprioritized. Patient report given, questions answered & plan of care reviewed with shannon pierre.
--- NOTE | 2018-12-27 19:01 | NUR ---
Patient in room [facility]. I have received report from Ilene COTTRELL and had the opportunity to ask questions and assume patient care.
[2018-12-27 20:39] VITALS: BP 101/66
[2018-12-27] MEDS: HYDROcodone/acetaminophen 10/325mg tab PO PRN (20:48)
[2018-12-27] MEDS: lactobacillus rhamnosus 10,000 MMU CELLS/CAPSULE PO SCH (20:48)
[2018-12-28] VITALS: BP 96/57
[2018-12-28 04:16] LABS: BASOPHILS % (AUTO) 0.4 % (0-1); EOSINOPHILS # (AUTO) 0.1 X10'3 (0-0.9); HEMATOCRIT 31.4 % (35.0-45.0); HEMOGLOBIN 10.8 g/dl (12.0-16.0); LYMPHOCYTES % (AUTO) 40.9 % (21-51); MEAN CORPUSCULAR HEMOGLOBIN 34.3 PG (27.0-31.0); MEAN CORPUSCULAR HGB CONC 34.4 g/dL (33.0-36.5); MEAN CORPUSCULAR VOLUME 99.6 FL (78-98); MEAN PLATELET VOLUME 8.4 FL (7.4-10.4); MONOCYTES % (AUTO) 13.9 % (2-12); NEUTROPHILS # (AUTO) 3.1 X10'3 (1.8-7.7); NEUTROPHILS % (AUTO) 42.8 % (42-75); PLATELET COUNT 143 X10'3 (140-440); RED BLOOD COUNT 3.15 X10'6 (4.20-5.60); RED CELL DISTRIBUTION WIDTH 14.5 % (11.5-14.5); WHITE BLOOD COUNT 7.3 X10'3 (4.5-11.0)
[2018-12-28 04:28] LABS: ALANINE AMINOTRANSFERASE 16 U/L (12-78); ALBUMIN/GLOBULIN RATIO 0.5 (1.1-1.5); ALKALINE PHOSPHATASE 95 IU/L (46-116); ANION GAP 4 (8-16); ASPARTATE AMINO TRANSFERASE 33 U/L (10-37); BILIRUBIN,TOTAL 2.3 MG/DL (0.1-1.0); BLOOD UREA NITROGEN 4 MG/DL (7-18); BUN/CREATININE RATIO 6.7 (6.6-38.0); CHLORIDE 106 MMOL/L (99-107); GLUCOSE 92 MG/DL (70-104); MAGNESIUM 1.6 MG/DL (1.5-2.4); PHOSPHORUS 3.6 MG/DL (2.3-4.5); POTASSIUM 3.2 MMOL/L (3.5-5.1); SODIUM 141 MMOL/L (135-145); TOTAL CARBON DIOXIDE 30.9 MMOL/L (24-32); TOTAL PROTEIN 6.1 G/DL (6.4-8.2); eGFR > 90 ML/MIN
--- NOTE | 2018-12-28 06:39 | NUR ---
Problems reprioritized. Patient report given, questions answered & plan of care reviewed with Ilene COTTRELL.
--- NOTE | 2018-12-28 06:47 | NUR ---
Patient in room [facility]. I have received report from shannon COTTRELL and had the opportunity to ask questions and assume patient care.
--- NOTE | 2018-12-28 06:49 | NUR ---
Patient in room [facility]. I have received report from Denise COTTRELL and had the opportunity to ask questions and assume patient care.
[2018-12-28 07:00] VITALS: BP 94/59
[2018-12-28 07:25] VITALS: BP 164/101
[2018-12-28] MEDS: nicotine 14mg patch - 24hr TD SCH (08:00)
[2018-12-28] MEDS: K and/or MAG REPLACEMENT MC SCH (08:00)
[2018-12-28] MEDS: non-formulary drug (Umeclidinium Brm/Vilanterol Tr (Anoro Ellipta 62.5-25 Mcg INH) 1 PUFF) PO SCH (08:00)
[2018-12-28] MEDS: lactulose 20gm/30ml cup PO SCH ×3 (08:51→21:06)
[2018-12-28] MEDS: potassium Cl 20 mEq SR tablet PO SCH ×2 (08:51→17:22)
[2018-12-28] MEDS: multivitamins, therapeutics tablet PO SCH (08:51)
[2018-12-28] MEDS: lactobacillus rhamnosus 10,000 MMU CELLS/CAPSULE PO SCH ×2 (08:52→21:00)
[2018-12-28] MEDS: thiamine 100mg tablet PO SCH (08:52)
[2018-12-28] MEDS: propranolol 10mg tablet PO SCH ×2 (08:52→21:00)
[2018-12-28] MEDS: oxyCODONE IR 5mg (immed. release) tablet PO PRN (08:54)
[2018-12-28] MEDS: albumin (human) 25% 100 ML IV solution IV SCH (08:56)
[2018-12-28] MEDS: CefTRIAXone/D5W-Rocephin 1gm 50 ML IV SCH (08:56)
[2018-12-28] MEDS: furosemide 40mg/4ml inj IV SCH ×3 (08:57→21:07)
[2018-12-28 11:00] VITALS: BP 109/73
[2018-12-28] MEDS: potassium Cl 20 mEq SR tablet PO PRN (13:57)
--- NOTE | 2018-12-28 17:10 | NUR ---
Pt received 200ml Albumin IV. unable to add to spread sheet.
--- NOTE | 2018-12-28 17:14 | NUR ---
Student documentation: I have reviewed and agree with all interventions, assessments performed and documented by SN Edgar.
--- NOTE | 2018-12-28 17:49 | NUR ---
Problems reprioritized. Patient report given, questions answered & plan of care reviewed with zora COTTRELL.
--- NOTE | 2018-12-28 18:34 | NUR ---
Problems reprioritized. Patient report given, questions answered & plan of care reviewed with Matt COTTRELL.
--- NOTE | 2018-12-28 18:39 | NUR ---
Patient in room [facility]. I have received report from RONIT Hoffman and had the opportunity to ask questions and assume patient care.
[2018-12-28 19:00] VITALS: BP 102/63
[2018-12-29 05:19] LABS: BASOPHILS # (AUTO) 0.1 X10'3 (0-0.2); BASOPHILS % (AUTO) 1.2 % (0-1); EOSINOPHILS # (AUTO) 0.2 X10'3 (0-0.9); EOSINOPHILS % (AUTO) 2.3 % (0-6); HEMOGLOBIN 11.5 g/dl (12.0-16.0); LYMPHOCYTES % (AUTO) 39.6 % (21-51); MEAN CORPUSCULAR HEMOGLOBIN 34.6 PG (27.0-31.0); MEAN CORPUSCULAR HGB CONC 34.9 g/dL (33.0-36.5); MEAN CORPUSCULAR VOLUME 99.2 FL (78-98); MEAN PLATELET VOLUME 9.1 FL (7.4-10.4); MONOCYTES # (AUTO) 1.1 X10'3 (0-0.9); MONOCYTES % (AUTO) 14.1 % (2-12); NEUTROPHILS # (AUTO) 3.3 X10'3 (1.8-7.7); NEUTROPHILS % (AUTO) 42.8 % (42-75); PLATELET COUNT 148 X10'3 (140-440); RED BLOOD COUNT 3.32 X10'6 (4.20-5.60); RED CELL DISTRIBUTION WIDTH 14.6 % (11.5-14.5); WHITE BLOOD COUNT 7.6 X10'3 (4.5-11.0)
[2018-12-29 05:26] LABS: ALANINE AMINOTRANSFERASE 10 U/L (12-78); ALBUMIN 2.6 G/DL (3.4-5.0); ALBUMIN/GLOBULIN RATIO 0.6 (1.1-1.5); ALKALINE PHOSPHATASE 95 IU/L (46-116); ANION GAP 5 (8-16); ASPARTATE AMINO TRANSFERASE 40 U/L (10-37); BILIRUBIN,TOTAL 2.5 MG/DL (0.1-1.0); BLOOD UREA NITROGEN 4 MG/DL (7-18); BUN/CREATININE RATIO 5.4 (6.6-38.0); CALCIUM 8.4 MG/DL (8.5-10.1); CHLORIDE 106 MMOL/L (99-107); CREATININE 0.74 MG/DL (0.40-0.90); GLUCOSE 92 MG/DL (70-104); MAGNESIUM 1.6 MG/DL (1.5-2.4); PHOSPHORUS 3.4 MG/DL (2.3-4.5); POTASSIUM 3.2 MMOL/L (3.5-5.1); SODIUM 139 MMOL/L (135-145); TOTAL PROTEIN 6.9 G/DL (6.4-8.2); eGFR 81 ML/MIN
--- NOTE | 2018-12-29 06:32 | NUR ---
Problems reprioritized. Patient report given, questions answered & plan of care reviewed with Nimco COTTRELL,RONIT Hoffman.
--- NOTE | 2018-12-29 06:39 | NUR ---
Patient in room [facility]. I have received report from Matt COTTRELL and had the opportunity to ask questions and assume patient care.
[2018-12-29] MEDS: albumin (human) 25% 100 ML IV solution IV SCH (07:18)
[2018-12-29 07:29] VITALS: BP 111/69
[2018-12-29] MEDS: furosemide 40mg/4ml inj IV SCH (07:34)
[2018-12-29] MEDS: CefTRIAXone/D5W-Rocephin 1gm 50 ML IV SCH (07:35)
[2018-12-29] MEDS: potassium Cl 20 mEq SR tablet PO SCH (07:35)
[2018-12-29] MEDS: multivitamins, therapeutics tablet PO SCH (07:36)
[2018-12-29] MEDS: thiamine 100mg tablet PO SCH (07:37)
[2018-12-29] MEDS: propranolol 10mg tablet PO SCH (07:37)
[2018-12-29] MEDS: lactobacillus rhamnosus 10,000 MMU CELLS/CAPSULE PO SCH (07:37)
[2018-12-29] MEDS: nicotine 14mg patch - 24hr TD SCH (08:00)
[2018-12-29] MEDS: K and/or MAG REPLACEMENT MC SCH (08:00)
[2018-12-29] MEDS: non-formulary drug (Umeclidinium Brm/Vilanterol Tr (Anoro Ellipta 62.5-25 Mcg INH) 1 PUFF) PO SCH (08:00)
[2018-12-29] MEDS: lactulose 20gm/30ml cup PO SCH (08:02)
[2018-12-29] MEDS ORDERED: potassium Cl 20 mEq SR tablet PO ONE (09:20)
[2018-12-29] MEDS ORDERED: POTA20TA10 PO (10:17)
[2018-12-29] MEDS ORDERED: NICO-631 TD (10:17)
[2018-12-29] MEDS ORDERED: FURO-149 PO (10:17)
--- NOTE | 2018-12-29 10:52 | NUR ---
Nutrition consult re: "high protein, 2 g Na restricted diet". Pt seen at bedside provided with written and verbal low sodium nutrition therapy and cirrhosis nutrition therapy educations with lists of protein and sodium content in food as well as recommendations for alternative seasonings. Pt reinforces need to use an alternative seasoning rather than salt to help limit sodium intake. Pt pending discharge, with no questions at this time. RD contact information provided and pt encouraged to reach out if she should have any questions. Will continue to follow. Addendum: 12/29/18 at [address] Amended: Links added.
--- NOTE | 2018-12-29 11:19 | NUR ---
Patient D/C'd home per DR Melgar. Pt stable, alert and oriented. IV removed, medication and discharge instruction given. pt left hospital via private vehicle accompanied by friend.
== END 2018-12-29 10:52 | disposition home health service (06) | DRG 291 ==
LOC: ER 10:55 → ED HOLD 14:05 → SUR 3N 16:36
PROVIDERS: ADMIT Family Medicine; ATTEND Family Medicine
DX: I50.33 Acute on chronic diastolic (congestive) heart failure (principal); E43 Unspecified severe protein-calorie malnutrition; L03.115 Cellulitis of right lower limb; D68.9 Coagulation defect, unspecified; Z68.41 Body mass index [BMI] 40.0-44.9, adult; J98.11 Atelectasis; K70.31 Alcoholic cirrhosis of liver with ascites; I50.30 Unspecified diastolic (congestive) heart failure; K43.9 Ventral hernia without obstruction or gangrene; F17.210 Nicotine dependence, cigarettes, uncomplicated; E66.01 Morbid (severe) obesity due to excess calories; B19.20 Unspecified viral hepatitis C without hepatic coma; G89.29 Other chronic pain; R09.89 Other specified symptoms and signs involving the circulatory and respiratory systems; E88.09 Other disorders of plasma-protein metabolism, not elsewhere classified; E87.6 Hypokalemia; G40.909 Epilepsy, unspecified, not intractable, without status epilepticus; J44.9 Chronic obstructive pulmonary disease, unspecified; Z87.410 Personal history of cervical dysplasia; Z90.710 Acquired absence of both cervix and uterus; Z98.891 History of uterine scar from previous surgery; Z68.31 Body mass index [BMI] 31.0-31.9, adult
CPT/HCPCS: 36415; 71045; 76705; 80053; 80061; 81003; 82150; 83690; 83735; 83880; 84100; 85025; 85610; 85730; 87081; 93306; 94760; 96374; 97110; 97112; 97116; 97161; 97530; 97535; 99285; G0378; J0295; J0696; J1940; J3490; P9047

== ENCOUNTER 2020-12-03 07:02 | Emergency (ER) | payer MEDICARE, MEDICAID ==
[~2020-12-03] VITALS: Ht 152.4 cm; Wt 87.7 kg
[~2020-12-03 07:02] MED LIST changes: +CALC-522 PO; +CHOL10006 PO; +CIDE500T PO; +CRAN400C PO; +FOLI0.4T14 PO; -FOLI1TAB16 PO; -LACT10SO57 PO; +LACT10SO67 PO; +MECO10005 PO; +MULT-1085 PO; -MULT-1179 PO; -NALO4SPR INH; +OXYC30TA PO; -OXYC30TA88 PO; -PANT40TA4 PO; +SPIR100T PO; -SULF1TAB49 PO; -thiamine tablet PO
[2020-12-03] MEDS ORDERED: normal saline 1000ml 1,000 ML IV ONE (07:25)
[2020-12-03] MEDS ORDERED: oxyCODONE/APAP 5-325mg tablet PO ONE (07:35)
[2020-12-03 08:24] LABS: BASOPHILS # (AUTO) 0.1 X10'3 (0-0.2); BASOPHILS % (AUTO) 0.8 % (0-1); EOSINOPHILS # (AUTO) 0.2 X10'3 (0-0.9); EOSINOPHILS % (AUTO) 2.4 % (0-6); HEMATOCRIT 43.1 % (35.0-45.0); LYMPHOCYTES # (AUTO) 1.7 X10'3 (1.1-4.8); LYMPHOCYTES % (AUTO) 23.8 % (21-51); MEAN CORPUSCULAR HEMOGLOBIN 34.1 PG (27.0-31.0); MEAN CORPUSCULAR HGB CONC 34.7 g/dL (33.0-36.5); MEAN CORPUSCULAR VOLUME 98.1 FL (78-98); MONOCYTES # (AUTO) 0.6 X10'3 (0-0.9); MONOCYTES % (AUTO) 7.9 % (2-12); NEUTROPHILS # (AUTO) 4.6 X10'3 (1.8-7.7); NEUTROPHILS % (AUTO) 65.1 % (42-75); PLATELET COUNT 164 X10'3 (140-440); RED BLOOD COUNT 4.39 X10'6 (4.20-5.60); RED CELL DISTRIBUTION WIDTH 14.8 % (11.5-14.5)
[2020-12-03 08:31] LABS: ALANINE AMINOTRANSFERASE 73 U/L (12-78); ALBUMIN 3.8 G/DL (3.4-5.0); ALBUMIN/GLOBULIN RATIO 0.7 (1.1-1.5); ALKALINE PHOSPHATASE 166 IU/L (46-116); ANION GAP 15 (8-16); ASPARTATE AMINO TRANSFERASE 89 U/L (10-37); BILIRUBIN,TOTAL 0.9 MG/DL (0.1-1.0); BLOOD UREA NITROGEN 9 MG/DL (7-18); BUN/CREATININE RATIO 18.4 (6.6-38.0); CALCIUM 8.7 MG/DL (8.5-10.1); CHLORIDE 106 MMOL/L (99-107); CREATININE 0.49 MG/DL (0.40-0.90); GLUCOSE 208 MG/DL (70-104); POTASSIUM 3.8 MMOL/L (3.5-5.1); SODIUM 143 MMOL/L (135-145); eGFR > 90 ML/MIN
[2020-12-03 08:44] VITALS: BP 124/89
[2020-12-03] MEDS ORDERED: DOXY100C43 PO (09:08)
[2020-12-03] MEDS ORDERED: DOXYCYCLINE 100MG CAPSULE PO STA (09:09)
[2020-12-03] MEDS ORDERED: morphine 10mg/0.5ml (conc. morphine) oral syringe PO ONE (09:10)
== END 2020-12-03 10:14 | disposition home or self-care (01) ==
LOC: ER 07:03
DX: S80.01XA Contusion of right knee, initial encounter (principal); L02.415 Cutaneous abscess of right lower limb; L03.115 Cellulitis of right lower limb; M25.561 Pain in right knee; I10 Essential (primary) hypertension; J44.9 Chronic obstructive pulmonary disease, unspecified; G89.29 Other chronic pain; F17.200 Nicotine dependence, unspecified, uncomplicated; Z86.19 Personal history of other infectious and parasitic diseases; Z98.890 Other specified postprocedural states; Z72.89 Other problems related to lifestyle; Z79.899 Other long term (current) drug therapy; X58.XXXA Exposure to other specified factors, initial encounter; Y93.89 Activity, other specified; Y92.89 Other specified places as the place of occurrence of the external cause; Y99.8 Other external cause status
CPT/HCPCS: 36415; 73564; 80053; 83605; 84145; 85025; 87040; 93971; 96360; 99285; J7030

== ENCOUNTER 2022-02-09 13:16 | Emergency (ER) | payer MEDICARE, MEDICAID ==
[~2022-02-09] VITALS: Ht 165.1 cm; Wt 95.0 kg
[2022-02-09 14:46] LABS: BASOPHILS # (AUTO) 0.1 X10'3 (0-0.2); BASOPHILS % (AUTO) 0.8 % (0-1); EOSINOPHILS # (AUTO) 0.1 X10'3 (0-0.9); HEMATOCRIT 41.4 % (35.0-45.0); HEMOGLOBIN 14.4 g/dl (12.0-16.0); LYMPHOCYTES # (AUTO) 1.6 X10'3 (1.1-4.8); LYMPHOCYTES % (AUTO) 25.3 % (21-51); MEAN CORPUSCULAR HGB CONC 34.8 g/dL (33.0-36.5); MEAN CORPUSCULAR VOLUME 100.6 FL (78-98); MEAN PLATELET VOLUME 9.9 FL (7.4-10.4); MONOCYTES # (AUTO) 0.7 X10'3 (0-0.9); MONOCYTES % (AUTO) 10.3 % (2-12); NEUTROPHILS % (AUTO) 61.6 % (42-75); PLATELET COUNT 81 X10'3 (140-440); RED BLOOD COUNT 4.12 X10'6 (4.20-5.60); RED CELL DISTRIBUTION WIDTH 13.7 % (11.5-14.5); WHITE BLOOD COUNT 6.5 X10'3 (4.5-11.0)
[2022-02-09 15:08] LABS: GLUCOSE 148 MG/DL (70-104); POTASSIUM 3.6 MMOL/L (3.5-5.1); SODIUM 138 MMOL/L (135-145)
[2022-02-09 15:09] LABS: ALANINE AMINOTRANSFERASE 67 U/L (12-78); ALBUMIN 3.3 G/DL (3.4-5.0); ALBUMIN/GLOBULIN RATIO 0.7 (1.1-1.5); ALKALINE PHOSPHATASE 216 IU/L (46-116); ANION GAP 12 (8-16); ASPARTATE AMINO TRANSFERASE 141 U/L (10-37); BILIRUBIN,TOTAL 2.6 MG/DL (0.1-1.0); BLOOD UREA NITROGEN 3 MG/DL (7-18); CALCIUM 8.3 MG/DL (8.5-10.1); CHLORIDE 103 MMOL/L (99-107); LIPASE 107 U/L (73-393); TOTAL CARBON DIOXIDE 23.5 MMOL/L (24-32); TOTAL PROTEIN 8.1 G/DL (6.4-8.2); eGFR > 90 ML/MIN
[2022-02-09 15:24] LABS: PLATELET ESTIMATE DECREASED
[2022-02-09 15:25] LABS: STOMATOCYTES 1+
[2022-02-09 16:09] LABS: URINE HCG NEGATIVE (NEG)
[2022-02-09 16:11] LABS: CLARITY,URINE SLIGHTLY CLOUDY (Clear); COLOR,URINE YELLOW (Yellow); GLUCOSE, URINE NEGATIVE (Neg); KETONES,URINE NEGATIVE (Neg); LEUKOCYTE ESTERASE ,URINE NEGATIVE (Neg); NITRITES, URINE NEGATIVE (Neg); OCCULT BLOOD,URINE NEGATIVE (Neg); PH,URINE 6.5 (4.8-8.0); PROTEIN,URINE NEGATIVE (Neg); UROBILINOGEN,URINE 0.2 E.U/dL (0.2-1.0)
[2022-02-09 16:14] LABS: UA COLLECTION TYPE CLN CATCH MIDSTREAM
[2022-02-09 16:20] LABS: BACTERIA,URINE FEW /HPF (Neg); RBC,URINE NONE SEEN /HPF (0-2); WBC,URINE NONE SEEN /HPF (0-4)
[2022-02-09 16:21] LABS: MUCUS STRANDS NONE SEEN /LPF (Neg); SQUAMOUS EPITHELIAL CELL,UR FEW /LPF (FEW)
[2022-02-09] MEDS ORDERED: furosemide 20MG tablet PO ONE (16:50)
[2022-02-09] MEDS ORDERED: SPIR50TA5 PO (18:10)
[2022-02-09] MEDS ORDERED: CYCL-1 PO (18:42)
[2022-02-09] MEDS ORDERED: GABA300C PO (18:42)
[2022-02-09 18:45] VITALS: BP 150/89
== END 2022-02-09 18:47 | disposition home or self-care (01) ==
LOC: ER 13:16
DX: K80.20 Calculus of gallbladder without cholecystitis without obstruction (principal); K74.60 Unspecified cirrhosis of liver; R60.9 Edema, unspecified; R10.31 Right lower quadrant pain; I10 Essential (primary) hypertension; J44.9 Chronic obstructive pulmonary disease, unspecified; G89.29 Other chronic pain; Z86.19 Personal history of other infectious and parasitic diseases; Z98.890 Other specified postprocedural states; Z72.89 Other problems related to lifestyle; Z79.899 Other long term (current) drug therapy
CPT/HCPCS: 36415; 76700; 80053; 81001; 81025; 83690; 83880; 85008; 85025; 93971; 99284; A4358